=== PATIENT | female | born 2005 | race Two or more races ===

== ENCOUNTER 2025-01-06 13:02 | Inpatient (IN) | payer BC, MEDICAID ==
[~2025-01-06] VITALS: Ht 156.2 cm; Wt 73.9 kg
[2025-01-06] MEDS ORDERED: mag hydrox/Alum hydrox/simeth 30ml oral suspension PO PRN (13:30)
[2025-01-06] MEDS ORDERED: magnesium hydroxide 30ml (MOM) UD suspension PO PRN (13:30)
[2025-01-06] MEDS ORDERED: loperamide 2mg capsule PO PRN (13:30)
[2025-01-06] MEDS ORDERED: NO HOME MEDS (15:08)
[2025-01-06 20:00] VITALS: BP 160/79; PULSE 60; RESP 18; TEMP 98.6; O2SAT 97
[2025-01-06 22:48] VITALS: RESP 18; O2SAT 100
[2025-01-07] VITALS (7 sets, daily range): BP systolic 139–166; BP diastolic 70–89; PULSE 60–71; RESP 16–18; TEMP 97.1–97.8; O2SAT 98–100
[2025-01-07 08:55] LABS: CHOL/HDL RATIO 3.3 (0.00-4.99); LDL CHOLESTEROL 95 MG/DL (50-100)
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
[2025-01-07] MEDS: lactose-reduced food (Ensure Enlive) - 237ml bottle PO SCH (13:00)
--- NOTE | 2025-01-07 18:13 | HISTORY AND PHYSICAL-Residence ---
History & Physical Providers to CC Resident Creating Document: [place], RES ~ History of Present Illness Reason for Admit\Complaint: Major depressive disorder, suicidal ideation History of Present Illness 19-year-old female admitted in [facility] after transferring from [place] with self-inflicted laceration to left anterior thigh with glass piece after drinking the alcohol and got 17 ting on left anterior thigh. He denied medical complaints of chest pain, shortness of breath, palpitations, abdominal pain, abdominal distention, pedal edema. She denied diabetes mellitus, hypertension, hyperlipidemia, hypothyroidism,. She do smokes marijuana a joint daily, smoking the tobacco Patient smokes a joint of marijuana daily, smokes tobacco daily, drinks a tall can of beer every other day. Allergies: Coded Allergies: No Known Allergies (Unverified , 01/06/25) Home Medications Home Medications Active Reported No Home Medications (Home Med List) Each Past Medical History Past Medical History Noncontributory Past Surgical History Surgical History Comment Noncontributory Past Social History Smoking: Cigarettes, Less than 1 pack/day Alcohol Use: Abuse Drug Use: Marijuana Lives with: Other Occupation: unemployed ROS All Other Systems: Reviewed and Negative ROS Reviewed in full and negative except positive pertinent as in HPI Exam Vitals: Vital Signs Date Time Temp Pulse Resp B/P (MAP) Pulse Ox O2 Delivery O2 Flow Rate FiO2 01/07/25 16:50 71 16 155/86 (109) 98 Room Air 01/07/25 08:14 97.1 General: General: Alert, awake, oriented to time place person. Not in acute distress HEENT: No JVD, no carotid upstroke Cardiovascular system: [place] 1st heart sound and 2nd heart sound. No murmur/rubs Respiratory system: Bilateral normal vesicular breath sounds are heard. No added sounds Gastrointestinal: Soft, nontender, nondistended . heard bowel sounds Central nervous system: No functional neurological deficits Extremities: No pedal edema/clubbing/cyanosis Advance Care Planning Advanced Care planning: Add on additional 30 min Additional Plan Major depressive disorder, recurrent, moderate Management plan per [facility] unit Alcohol use CBC, CMP is ordered and we will follow up with the results On folic acid, thiamine, multivitamin Hospitalist team will follow up for the medical needs Xavier Cox Internal medicine resident, PGY 2 Date of Service: Jan 07, 2025 Billing Provider: KI XIE MD Common Visit Codes: [id number] INP/OBS CARE (MOD) XAVIER COX, RES Jan 07, 2025 18:13 KI XIE MD Jan 13, 2025 15:15
[2025-01-07 19:09] LABS: MEAN PLATELET VOLUME 8.2 FL (7.4-10.4); RED CELL DISTRIBUTION WIDTH 13.7 % (11.5-14.5)
[2025-01-07 19:21] LABS: CREATININE 0.82 MG/DL (0.40-0.90); TOTAL CARBON DIOXIDE 20.9 MMOL/L (24-32); eCRCL 85 ML/MIN; eGFR 89 ML/MIN
[2025-01-07] MEDS: buPROPion SR 150mg tablet PO SCH (20:00)
[2025-01-08 00:50] VITALS: BP 144/87; PULSE 66; RESP 14; O2SAT 98
[2025-01-08 07:00] VITALS: BP 143/79; PULSE 68; RESP 16; TEMP 97.2; O2SAT 99
[2025-01-08] MEDS: multivitamins, therapeutics tablet PO SCH (08:00)
[2025-01-08 12:01] LABS: MEAN PLATELET VOLUME 8.4 FL (7.4-10.4); RED CELL DISTRIBUTION WIDTH 13.8 % (11.5-14.5)
[2025-01-08 12:12] LABS: INR 1.0 INR
[2025-01-08 12:16] LABS: CREATININE 0.95 MG/DL (0.40-0.90); PHOSPHORUS 2.8 MG/DL (2.3-4.5); TOTAL CARBON DIOXIDE 20.8 MMOL/L (24-32); eCRCL 73 ML/MIN; eGFR 75 ML/MIN
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
[2025-01-08 19:46] VITALS: BP 158/91; PULSE 98; RESP 20; TEMP 97.6; O2SAT 98
[2025-01-08 19:47] VITALS: RESP 20; O2SAT 98
[2025-01-09 07:00] VITALS: RESP 16; O2SAT 99
[2025-01-09 08:00] VITALS: BP 126/80; PULSE 80; RESP 16; TEMP 97; O2SAT 99
--- NOTE | 2025-01-09 12:11 | PROGRESS NOTE ---
Daily Progress Note Providers to CC ~ Antibiotic Timeout Antibiotic Ordered?: No Subjective This is the hospitalist progress note on patients hospitalized at [facility]. The patient was inquiring about her wound to her left anterior thigh and wondering if it was healing well- the staple line is clean dry and intact in his no erythema appreciated. The patient has no other medical complaints or concerns Objective Vital Signs Date Time Temp Pulse Resp B/P (MAP) Pulse Ox O2 Delivery O2 Flow Rate FiO2 01/09/25 08:00 97.0 80 16 126/80 (95) 99 Room Air Result Diagram: 01/08/25 1119 01/08/25 1119 Gen. No acute distress alert and oriented Lungs clear to ascultation bilaterally, no wheezes rales or rhonchi appreciated Heart normal sinus rhythm no murmurs rubs or clicks noted Abdomen soft nontender bowel sounds are normoactive Lower extremities no clubbing cyanosis, nor edema appreciated bilaterally Skin linear staple line anterior left thigh no erythema appreciated clean dry and intact Coagulation Studies Laboratory Tests Test 01/08/25 11:19 Prothrombin Time 10.6 SECONDS (9.0-12.0) INR International Normalized Ratio 1.0 INR Coagulation Comments Problem\Assessment\Plan Problems/Diagnosis: (1) Major depressive disorder, recurrent, moderate # major depression # suicidal Followed by Psychiatry # left anterior thigh laceration Staple line is clean dry and intact I informed the patient this is high area of traction and thus ting will likely remain in place for total of 10-14 days # hypokalemia Mild Recheck a metabolic panel in one-week # mild leukocytosis Resolved Likely secondary to leukemoid reaction The hospitalist service will continue to follow the patient Date of Service: Jan 09, 2025 Billing Provider: SERA ARRIAGA DO Common Visit Codes: [id number] INP/OBS CARE(MOD) SERA ARRIAGA DO Jan 09, 2025 12:11
[2025-01-09 19:22] VITALS: BP 134/91; PULSE 107; RESP 16; TEMP 98.2; O2SAT 98
[2025-01-09 20:00] VITALS: RESP 16; O2SAT 98
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
[2025-01-10 07:00] VITALS: BP 128/78; PULSE 71; RESP 16; TEMP 98.3; O2SAT 99
[2025-01-10] MEDS: lactose-reduced food (Ensure Enlive) - 237ml bottle PO SCH (17:28)
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
[2025-01-10 19:00] VITALS: RESP 17; O2SAT 98
[2025-01-10 20:00] VITALS: BP 150/90; PULSE 80; RESP 17; TEMP 97.8; O2SAT 98
[2025-01-11 07:00] VITALS: RESP 16; O2SAT 99
[2025-01-11 08:00] VITALS: BP 134/74; PULSE 84; RESP 16; TEMP 98.1; O2SAT 99
--- NOTE | 2025-01-11 12:45 | PROGRESS NOTE ---
Progress Note Dictate Providers to CC ~ Central Line/PICC still needed: N\\A Antibiotic Ordered?: No MRSA Education MRSA Education Provided to pt: No Objective Vitals Vital Signs Date Time Temp Pulse Resp B/P (MAP) Pulse Ox O2 Delivery O2 Flow Rate FiO2 01/11/25 08:00 98.1 84 16 134/74 (94) 99 Room Air Lab Results: 01/08/25 1119 01/08/25 1119 Coagulation Studies Laboratory Tests Test 01/08/25 11:19 Prothrombin Time 10.6 SECONDS (9.0-12.0) INR International Normalized Ratio 1.0 INR Coagulation Comments Psychiatrist's Progress Note Date of Service: Jan 11, 2025 Notes CHART REVIEW Pt was placed on a 5150 after family and friends contacted crisis due to the pt's behavior, not eating, not sleeping for five days, paranoia, and SI comments. The pt was gravely disabled due to a mental disorder, pt is manic, paranoid, not sleeping and not eating, pt responding to I/S and expressing paranoid thoughts that others are trying to harm them. Pt lacks insight and refusing help, can't care for her basic needs. ASSESSMENT The patient was interviewed in observation room. The patient was actively a mbulating in the hallway. The patient endorses "I am doing good." The patient endorses no worsening mental health symptoms. Denies SI. Denies HI. Denies AVH. The patient endorses adequate sleep and food intake. The patient is stable no acute distress noted. The patient presents as calm, cooperative, and engaged during session. Per staff report patient is medication compliant. Per staff report no abnormal behaviors. Will continue daily assessment and adjusting treatment as needed. Closely monitor behavior and response to medication during hospitalization. Appearnace: Other Speech: Normal Eye Contact: Normal Motor Activity: Normal Affect: Full Orientation Impairment: None Memory Impairment: None Attention: Normal Hallucinations: None Other: None Suicidality: None Homicidality: None Delusions: None Behavior: Cooperative Insight: Fair Judgment: Fair Treatment GABAPENTIN 200 MG P.O. B.I.D. PRN 5150 HOLD-DTS- Patient is unable to formulate a plan to safety due to the severity of their mental illness. We are still titrating medications to an effective dose while maintaining a therapeutic environment to prevent decompensation and readmission. Monitoring by Staff, Milieu, Group, and Individual counseling as needed -- According to the [place] Suicide Assessment the above named patient is on Q15 MINUTE CHECKS. Total time spent 40 minutes on REVIEW OF Clinical notes [X ] RN notes [X] PCT documentation [X] SW notes Labs [ X] Medications [X] Care trends/care activity [X] Vitals [X] DISCUSSION WITH automobile insurance claim examiner [X] Staff SW Treatment Team [X] Discharge UNSURE AT THIS TIME. DISCHARGE HOME ONCE STABLE. CODING VISIT-PSYCHIATRY Date of Service: Jan 11, 2025 Billing Provider: LEVAR DON APRN Psych Common Visit Codes: [id number] INP/OBS CARE(Mod) LEVAR DON APRN Jan 11, 2025 12:45
--- NOTE | 2025-01-11 14:05 | PROGRESS NOTE- Residence ---
Progress Note - Resident Providers to CC Resident Creating Document: DIANNA COX RES ~ Antibiotic Timeout Antibiotic Ordered?: No Subjective Seen and examined the patient at bedside. She denied any new onset of complaints Objective Vital Signs Date Time Temp Pulse Resp B/P (MAP) Pulse Ox O2 Delivery O2 Flow Rate FiO2 01/11/25 08:00 98.1 84 16 134/74 (94) 99 Room Air Result Diagram: 01/08/25 1119 01/08/25 1119 General: No acute distress alert and oriented Respiratory system: clear to ascultation bilaterally, no wheezes rales or rhonchi appreciated Cardiovascular system: normal sinus rhythm no murmurs rubs or clicks noted Gastrointestinal: soft nontender bowel sounds are normoactive Lower extremities : no clubbing cyanosis, nor edema appreciated bilaterally Skin : linear staple line anterior left thigh no erythema appreciated clean dry and intact Nervous system: No functional neurological deficits Coagulation Studies Laboratory Tests Test 01/08/25 11:19 Prothrombin Time 10.6 SECONDS (9.0-12.0) INR International Normalized Ratio 1.0 INR Coagulation Comments Advance Care Planning Advanced Care plannin - 30 Minutes Plan Plan Major depressive disorder, recurrent, moderate # major depression # suicidal Followed by Psychiatry # left anterior thigh laceration Staple line is clean dry and intact this is high area of traction and thus ting will likely remain in place for total of 10 days # hypokalemia Mild Recheck a metabolic panel in one-week # mild leukocytosis Resolved Likely secondary to leukemoid reaction The hospitalist service will continue to follow the patient Dianna Cox Internal medicine resident, PGY2 Date of Service: Jan 11, 2025 Billing Provider: KI XIE MD Common Visit Codes: [id number] INP/OBS CARE(MOD) DIANNA COX RES Jan 11, 2025 14:05 KI XIE MD Jan 13, 2025 15:15
[2025-01-11 19:00] VITALS: RESP 17; O2SAT 96
[2025-01-11 20:00] VITALS: BP 129/90; PULSE 60; RESP 17; TEMP 98.1; O2SAT 96
[2025-01-11] MEDS: bacitracin 15gm ointment TP SCH (20:00)
[2025-01-12 07:00] VITALS: RESP 16; O2SAT 100
[2025-01-12 08:00] VITALS: BP 129/77; PULSE 101; RESP 16; TEMP 98.2; O2SAT 100
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
[2025-01-12 19:00] VITALS: RESP 18; O2SAT 99
[2025-01-12 20:00] VITALS: BP 132/83; PULSE 94; RESP 18; TEMP 98.1; O2SAT 99
[2025-01-13 07:00] VITALS: RESP 16; O2SAT 99
[2025-01-13 07:45] LABS: CREATININE 0.91 MG/DL (0.40-0.90); TOTAL CARBON DIOXIDE 26.5 MMOL/L (24-32); eCRCL 76 ML/MIN; eGFR 79 ML/MIN
[2025-01-13 08:00] VITALS: BP 121/78; PULSE 92; RESP 16; TEMP 97.1; O2SAT 99
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
[2025-01-13 19:00] VITALS: RESP 18; O2SAT 99
[2025-01-13 20:00] VITALS: BP 128/83; PULSE 90; RESP 18; TEMP 98.4; O2SAT 99
[2025-01-14 07:00] VITALS: BP 107/62; PULSE 101; RESP 15; TEMP 98.5; O2SAT 98
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
[2025-01-14 19:00] VITALS: RESP 18; O2SAT 96
[2025-01-14 20:00] VITALS: BP 162/91; PULSE 102; RESP 18; TEMP 97.9; O2SAT 96
[2025-01-15 07:00] VITALS: BP 106/58; PULSE 65; RESP 14; TEMP 97.5; O2SAT 100
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
--- NOTE | 2025-01-15 16:53 | PROGRESS NOTE ---
Clinical Note Clinical Note Progress Note: Patient was on my list however patient has already been discharge. Visit Not billable. KVNG GRIFFIN MD Jan 15, 2025 16:53
--- NOTE | 2025-01-15 16:53 | Visit Coding Note ---
Date of Service: Jan 15, 2025 Billing Provider: KVNG GRIFFIN MD Common Visit Codes: NOT BILLABLE KVNG GRIFFIN MD Jan 15, 2025 16:53
== END 2025-01-15 10:33 | disposition home or self-care (01) | DRG 885 ==
LOC: ADULT MH 13:11
PROVIDERS: ADMIT Psychiatry & Neurology Psychiatry; ATTEND Psychiatry & Neurology Psychiatry
PROC: GZHZZZZ Group Psychotherapy (ICD-10-PCS; principal; 2025-01-11)
PROC: GZ51ZZZ Individual Psychotherapy, Behavioral (ICD-10-PCS; 2025-01-11)
DX: F33.1 Major depressive disorder, recurrent, moderate (principal); R45.851 Suicidal ideations; F12.90 Cannabis use, unspecified, uncomplicated; F17.210 Nicotine dependence, cigarettes, uncomplicated; F10.10 Alcohol abuse, uncomplicated; S71.112A Laceration without foreign body, left thigh, initial encounter; X58.XXXA Exposure to other specified factors, initial encounter; F41.9 Anxiety disorder, unspecified; D72.829 Elevated white blood cell count, unspecified; E87.6 Hypokalemia; Y99.8 Other external cause status; Y92.89 Other specified places as the place of occurrence of the external cause; Y93.89 Activity, other specified; Z79.899 Other long term (current) drug therapy
CPT/HCPCS: 36415; 80048; 80053; 80061; 82150; 83690; 83735; 84100; 85025; 85610; 87081; A6258; A6449